=== PATIENT | male | born 1990 | race Caucasian/White ===

== ENCOUNTER 2017-12-07 22:49 | Emergency (ER) | payer SELFPAY ==
[2017-12-07] MEDS ORDERED: CEFAZOLIN 1 Gram 1 GM/50 ML BAG IVPB ONE (23:16)
[2017-12-07] MEDS ORDERED: Diph,Pert(Acell),Tet Vac 0.5 ML SYR IM ONE (23:16)
[2017-12-07 23:21] LABS: BASO % 0.3 % (0-6); EOS % 1.7 % (0-6); GRAN % 59.7 % (47-80); HEMATOCRIT 43.9 % (42.0-52.0); HEMOGLOBIN 14.9 gm/dl (14.0-18.0); LYMPH % 29.5 % (16-45); MEAN CELL VOLUME 95.6 fl (81-97); MEAN CORPUSCULAR HEMOGLOBIN 32.5 pg (27-33); MEAN CORPUSCULAR HGB CONC 33.9 g/dl (32-36); MONO % 8.8 % (0-9); PLATELET COUNT 186 K/uL (130-400); RED BLOOD COUNT 4.59 M/uL (4.40-5.70); RED CELL DISTRIBUTION WIDTH 13.6 % (11.5-14.5); WHITE BLOOD COUNT W/O DIFF 6.3 K/uL (4.2-12.2)
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
[2017-12-08] MEDS ORDERED: HYDROCODONE/APAP 5/325MG TABLET PO ONE (00:52)
== END 2017-12-08 01:05 | disposition home or self-care (01) ==
LOC: ER 22:49
DX: S41.012A Laceration without foreign body of left shoulder, initial encounter (principal); S21.112A Laceration without foreign body of left front wall of thorax without penetration into thoracic cavity, initial encounter; S21.111A Laceration without foreign body of right front wall of thorax without penetration into thoracic cavity, initial encounter; S41.112A Laceration without foreign body of left upper arm, initial encounter; X99.1XXA Assault by knife, initial encounter; F17.210 Nicotine dependence, cigarettes, uncomplicated
CPT/HCPCS: 12035 ×2; 12005; 99284 ×2; 96374; 96372; 12006; 85025; J0690; 90715

== ENCOUNTER 2018-02-02 04:58 | Emergency (ER) | payer SELFPAY ==
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
[2018-02-02 05:47] LABS: BASO % 0.1 % (0-6); EOS % 0.4 % (0-6); GRAN % 72.1 % (47-80); HEMATOCRIT 47.7 % (42.0-52.0); HEMOGLOBIN 16.3 gm/dl (14.0-18.0); LYMPH % 20.3 % (16-45); MEAN CORPUSCULAR HEMOGLOBIN 32.5 pg (27-33); MEAN CORPUSCULAR HGB CONC 34.2 g/dl (32-36); MEAN PLATELET VOLUME 11.1 fl (7.4-10.4); MONO % 7.1 % (0-9); PLATELET COUNT 198 K/uL (130-400); RED BLOOD COUNT 5.02 M/uL (4.40-5.70); RED CELL DISTRIBUTION WIDTH 12.7 % (11.5-14.5); WHITE BLOOD COUNT W/O DIFF 7.8 K/uL (4.2-12.2)
[2018-02-02 05:54] LABS: AMPHETAMINE SCREEN URINE DETECTED; BARBITURATE SCREEN URINE NOT DETECTED; BENZODIAZEPINE SCREEN URINE NOT DETECTED; COCAINE SCREEN URINE NOT DETECTED; METHADONE SCREEN URINE NOT DETECTED; METHAMPHETAMINE SCREEN DETECTED; OPIATE SCREEN URINE NOT DETECTED; OXYCODONE SCREEN URINE NOT DETECTED; PHENCYCLIDINE SCREEN URINE NOT DETECTED; PROPOXYPHENE SCREEN URINE NOT DETECTED; THC SCREEN URINE NOT DETECTED; TRICYCLIC ANTIDEPRESSANT SCRN NOT DETECTED
[2018-02-02 06:00] LABS: BLOOD UREA NITROGEN 11 mg/dL (6-20); CREATININE 1.1 mg/dL (0.7-1.2); EST GLOMERULAR FILTRATION RATE > 60 mL/min
[2018-02-02 06:03] LABS: ALCOHOL 0.162 g/dL (0-0.010); GLUCOSE,RANDOM 97 mg/dL (74-109)
[2018-02-02 06:06] LABS: ACETAMINOPHEN < 5.0 ug/mL (10.0-30.0); ALB/GLOB RATIO 1.8 (1.1-1.8); ALBUMIN 5.1 g/dL (4.0-5.0); ALKALINE PHOSPHATASE 93 U/L (40-129); ALT/SGPT 17 U/L (<41); AST/SGOT 27 U/L (10.0-50.0); SALICYLATE < 0.3 mg/dL (2.8-20)
[2018-02-02 06:17] LABS: THYROID STIMULATING HORMONE 0.76 uIU/mL (0.270-4.20)
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
== END 2018-02-02 11:20 ==
LOC: ER 04:58
DX: R45.851 Suicidal ideations (principal); F10.920 Alcohol use, unspecified with intoxication, uncomplicated; F15.90 Other stimulant use, unspecified, uncomplicated; F17.210 Nicotine dependence, cigarettes, uncomplicated; Y90.6 Blood alcohol level of 120-199 mg/100 ml
CPT/HCPCS: 80053; 80305; 80320; 80329; 84443; 85025; 99285